=== PATIENT | male | born 1970 | race Caucasian/White ===

== ENCOUNTER 2017-06-21 13:11 | Emergency (ER) | payer SELFPAY ==
--- NOTE | 2017-06-21 13:47 | Emergency Department Record ---
History of Present Illness - General Chief Complaint: Slurred speech Stated Complaint: SLURRED SPEECH,HEADACHE, Time Seen by Provider: 06/21/17 13:31 Source: Patient Mode of Arrival: Ambulatory Limitations: No limitations - History of Present Illness Initial Comments: The patient is here due to wanting workup for his stroke he suffered on Apr 10 of this year. He has a very severe R sided CVA 2 months ago and was admitted to [facility] in [place]. After being there about 26 hours he left AMA. When he went into the hospital he could not move his R side and could not speak and had a severe R facial droop. Over the last 2 months he has slowly gotten mildly better but still has drooling out of the R side of his mouth and speech difficulties. He also is having trouble with his R side but it is a little better. Today the patient just got fed up with his condition and decided to come to the hospital for treatment. He has received no F/U and is on no medicines. Onset/Timin -: Month(s) Location: Right arm, Right leg, Speech History of same: Yes Place: Home Severity: Moderate Improves With: None Worsens With: None On Anticoagulants: No Associated Symptoms: Other Treatments Prior to Arrival: None - Ru Coma Scale Eye Response: (4) Open spontaneously Motor Response: (6) Obeys commands Verbal Response: (5) Oriented [place] Total: 15 - Related Data Home Medications: Home Medications Medication Instructions Recorded Confirmed Last Taken No Home Med [NO HOME MEDS] 06/21/17 06/21/17 Unknown Allergies/Adverse Reactions: Allergies Allergy/AdvReac Type Severity Reaction Status Date / Time No Known Drug Allergies Allergy Verified 06/21/17 13:17 Travel Screening - Travel/Exposure Within Last 30 Days Have you traveled within the last 30 days?: No - Travel/Exposure Within Last Year Have you traveled outside the [place] in the last year?: No - Additonal Travel Details Have you been exposed to anyone with a communicable illness?: No - Travel Symptoms Symptom Screening: None Review of Systems Constitutional: Denies: Chills, Fever Eyes: Denies: Eye discharge ENT: Denies: Congestion Respiratory: Denies: Cough, Dyspnea Past Medical History - SOCIAL HISTORY Smoking Status: Current every day smoker Alcohol Use: None Drug Use Detail:: Marijuana - RESPIRATORY Hx Respiratory Disorders: No - CARDIOVASCULAR Hx Cardio Disorders: No - NEURO Hx Neuro Disorders: Yes Hx CVA: Yes (April 10, 2017) - GI Hx GI Disorders: No - Hx Genitourinary Disorders: No - ENDOCRINE Hx Endocrine Disorders: No - MUSCULOSKELETAL Hx Musculoskeletal Disorders: No - PSYCH Hx Psych Problems: No - HEMATOLOGY/ONCOLOGY Hx Hematology/Oncology Disorders: No Family Medical History Any Significant Family History?: Yes Hx Alcohol Use: Father Hx Cancer: Mother Hx Liver Disease: Father Physical Exam - General General Appearance: Alert, Oriented x3, Cooperative, No acute distress - Head Head exam: Atraumatic, Normocephalic, Normal inspection - Eye Eye exam: Normal appearance, PERRL, EOMI - ENT ENT exam: negative: Normal exam (Mild R facial droop.) Throat exam: Normal inspection. negative: Tonsillar erythema, Tonsillar exudate - Neck Neck exam: Normal inspection, Full ROM. negative: Tenderness - Respiratory Respiratory exam: Normal lung sounds bilaterally. negative: Respiratory distress - Cardiovascular Cardiovascular Exam: Regular rate, Normal rhythm, Normal heart sounds - GI/Abdominal GI/Abdominal exam: Soft, Normal bowel sounds. negative: Tenderness - Extremities Extremities exam: Normal inspection, Full ROM, Normal capillary refill. negative: Tenderness - Neurological Neurological exam: Abnormal gait (mild ataxia), Alert (He does have a mild expressive aphasia.), Motor sensory deficit (There is very mild R arm weakness. There is a clearly abnormal R hand finger to nose exam.), Oriented X3, Reflexes normal. negative: Normal gait - Psychiatric Psychiatric exam: negative: Anxious Course Vital Signs 06/21/17 13:19 Temperature 98.4 F Pulse Rate 89 Respiratory 18 Rate Blood Pressure 134/83 Pulse Ox 98 - Reevaluation(s) Reevaluation #1: The patient is doing very well at this time. He is resting comfortably. I did discuss the need for admission with him and did recommend a larger hospital due to the need for an MRI and Neurology. The patent would like to go to [facility] so I did discuss the case with Dr. Ferro and she does accept the patient as a direct admission. 06/21/17 14:48 Reevaluation #2: The patient is doing very well at this time. I did recommend transfer by Ambulance but the patient and are refusing. They would like to go by car. They both understand the risks of transferring by car and accept the risks. 06/21/17 15:09 Medical Decision Making - Data Complexity MDM Data: Labs Ordered and/or Reviewed, X-Ray Ordered and/or Reviewed, EKG Ordered and/or Reviewed - Lab Data Result diagrams: 06/21/17 13:20 06/21/17 13:20 - EKG Data -: EKG Interpreted by Me EKG: No Acute Changes, Normal EKG (NSR with LAD, possible LAFB.) - Radiology Data Radiology results: Report reviewed (Head CT: Neg acute changes, old high L parietal lobe infarct.) Disposition Disposition: Transfer Disposition: Acute Care Hospital Transfer Transfer To: [facility] Reason For Transfer: Neurology Accepting Physician: Pillo Time Discussed w/Accepting Physician: 14:49 Condition: (2) Stable Forms: Patient Portal Access Time of Disposition: 14:49 Quality - Quality Measures Quality Measures: N/A - Blood Pressure Screening View Details: Yes Does Patient Have Any of the Following: No Blood Pressure Classification: Hypertensive Reading Systolic Measurement: 143 Diastolic Measurement: 90 Screening for High Blood Pressure: < Pre-Hypertensive BP, F/U Documented > [ G8950] Pre-Hypertensive Follow-up Interventions: Referral to alternative/primary care provider.
[2017-06-21 13:59] LABS: BASO % 0.5 % (0-6); EOS % 1.9 % (0-6); HEMATOCRIT 41.6 % (42.0-52.0); LYMPH % 21.4 % (16-45); MEAN CELL VOLUME 99.8 fl (81-97); MEAN CORPUSCULAR HGB CONC 33.7 g/dl (32-36); MEAN PLATELET VOLUME 9.4 fl (7.4-10.4); MONO % 10.2 % (0-9); PLATELET COUNT 296 K/uL (130-400); RED BLOOD COUNT 4.17 M/uL (4.40-5.70)
[2017-06-21 14:01] LABS: MEAN CORPUSCULAR HEMOGLOBIN 33.5 pg (27-33)
[2017-06-21 14:04] LABS: BLOOD UREA NITROGEN 9 mg/dL (6-20); CREATININE 0.6 mg/dL (0.7-1.2); EST GLOMERULAR FILTRATION RATE > 60 mL/min
[2017-06-21 14:05] LABS: TOTAL PROTEIN 7.4 g/dL (6.6-8.7)
[2017-06-21 14:07] LABS: GLUCOSE,RANDOM 138 mg/dL (74-109)
[2017-06-21 14:09] LABS: ALT/SGPT 27 U/L (<41)
[2017-06-21 14:10] LABS: ALB/GLOB RATIO 1.3 (1.1-1.8); ALBUMIN 4.2 g/dL (4.0-5.0); ALKALINE PHOSPHATASE 77 U/L (40-129); AST/SGOT 49 U/L (10.0-50.0)
[2017-06-21] MEDS: ASPIRIN 325 MG TABLET PO ONE (14:46)
--- NOTE | 2017-06-22 08:35 | CT SCAN REPORT ---
EXAM: EMERGENCY HEAD CT HISTORY: RIGHT SIDED WEAKNESS, POST CVA, SLURRED SPEECH. TECHNIQUE: Axial CT scan of the head was performed without IV contrast. Comparison: None. FINDINGS: No definite acute intracranial hemorrhage identified. No focal mass effect or midline shift apparent. No definite acute infarct or intracranial mass lesion is seen. There is a small area of low attenuation high in the left parietal lobe probably representing a small old area of infarction. Mild membrane thickening in the left maxillary sinus. IMPRESSION: 1. NO DEFINITE ACUTE INTRACRANIAL HEMORRHAGE OR FOCAL MASS EFFECT EVIDENT. 2. THERE IS PROBABLY A SMALL OLD AREA OF INFARCTION IN THE LEFT PARIETAL LOBE. 3. MILD MEMBRANE THICKENING LEFT MAXILLARY ANTRUM. 4. IF THE PATIENT'S NEUROLOGIC SYMPTOMS PERSIST, A FOLLOW-UP BRAIN MRI WOULD BE SUGGESTED FOR FURTHER EVALUATION IF NOT CONTRAINDICATED. JOB NUMBER: [id number] [facility]
--- NOTE | 2017-06-24 07:21 | Emergency Department Record ---
History of Present Illness - General Chief Complaint: Slurred speech Stated Complaint: SLURRED SPEECH,HEADACHE, Time Seen by Provider: 06/21/17 13:31 Source: Patient Mode of Arrival: Ambulatory Limitations: No limitations - History of Present Illness Onset/Timin -: Month(s) Location: Right arm, Right leg, Speech History of same: Yes Place: Home Severity: Moderate Improves With: None Worsens With: None On Anticoagulants: No Associated Symptoms: Other Treatments Prior to Arrival: None - Ru Coma Scale Eye Response: (4) Open spontaneously Motor Response: (6) Obeys commands Verbal Response: (5) Oriented [place] Total: 15 - Related Data Home Medications: Home Medications Medication Instructions Recorded Confirmed Last Taken No Home Med [NO HOME MEDS] 06/21/17 06/21/17 Unknown Allergies/Adverse Reactions: Allergies Allergy/AdvReac Type Severity Reaction Status Date / Time No Known Drug Allergies Allergy Verified 06/21/17 13:17 Travel Screening - Travel/Exposure Within Last 30 Days Have you traveled within the last 30 days?: No - Travel/Exposure Within Last Year Have you traveled outside the [place] in the last year?: No - Additonal Travel Details Have you been exposed to anyone with a communicable illness?: No - Travel Symptoms Symptom Screening: None Review of Systems Constitutional: Denies: Chills, Fever Eyes: Denies: Eye discharge ENT: Denies: Congestion Respiratory: Denies: Cough, Dyspnea Past Medical History - SOCIAL HISTORY Smoking Status: Current every day smoker Alcohol Use: None Drug Use Detail:: Marijuana - RESPIRATORY Hx Respiratory Disorders: No - CARDIOVASCULAR Hx Cardio Disorders: No - NEURO Hx Neuro Disorders: Yes Hx CVA: Yes (April 10, 2017) - GI Hx GI Disorders: No - Hx Genitourinary Disorders: No - ENDOCRINE Hx Endocrine Disorders: No - MUSCULOSKELETAL Hx Musculoskeletal Disorders: No - PSYCH Hx Psych Problems: No - HEMATOLOGY/ONCOLOGY Hx Hematology/Oncology Disorders: No Family Medical History Any Significant Family History?: Yes Hx Alcohol Use: Father Hx Cancer: Mother Hx Liver Disease: Father Physical Exam - General Limitations: No limitations Course Vital Signs 06/21/17 06/21/17 13:19 15:26 Temperature 98.4 F Pulse Rate 89 71 Respiratory 18 18 Rate Blood Pressure 134/83 143/90 Pulse Ox 98 98 Medical Decision Making - Lab Data Result diagrams: 06/21/17 13:20 06/21/17 13:20 Lab Results 06/21/17 06/21/17 Range/Units 13:20 13:20 WBC 8.0 (4.2-12.2) K/uL RBC 4.17 L (4.40-5.70) M/uL Hgb 14.0 (14.0-18.0) gm/dl Hct 41.6 L (42.0-52.0) % MCV 99.8 H (81-97) fl MCH 33.5 H (27-33) pg MCHC 33.7 (32-36) g/dl RDW 13.0 (11.5-14.5) % Plt Count 296 (130-400) K/uL MPV 9.4 (7.4-10.4) fl Gran % 66.0 (47-80) % Lymphocytes % 21.4 (16-45) % Monocytes % 10.2 H (0-9) % Eosinophils % 1.9 (0-6) % Basophils % 0.5 (0-6) % Sodium 142 (136-145) mmol/L Potassium 4.4 (3.4-4.5) mmol/L Chloride 101 (98-107) mmol/L Carbon Dioxide 28.0 (22-29) mmol/L Anion Gap 13.0 (7-16) BUN 9 (6-20) mg/dL Creatinine 0.6 L (0.7-1.2) mg/dL Estimated GFR > 60 mL/min Random Glucose 138 H (74-109) mg/dL Calcium 9.6 (8.6-10.0) mg/dL Total Bilirubin 0.60 (0.2-1.0) mg/dL AST 49 (10.0-50.0) U/L ALT 27 (<41) U/L Alkaline Phosphatase 77 (40-129) U/L Total Protein 7.4 (6.6-8.7) g/dL Albumin 4.2 (4.0-5.0) g/dL Globulin 3.2 (1.4-4.8) gm/dL Albumin/Globulin Ratio 1.3 (1.1-1.8) Disposition Disposition: Transfer Clinical Impression: Cerebral vascular disease Disposition: Acute Care Hospital Transfer Transfer To: [facility] [place] Reason For Transfer: CVA Accepting Physician: Buskolic Time Discussed w/Accepting Physician: 07:20 Condition: (2) Stable Forms: Patient Portal Access Time of Disposition: 07:20 Quality - Quality Measures Quality Measures: N/A - Blood Pressure Screening View Details: Yes Does Patient Have Any of the Following: No Blood Pressure Classification: Hypertensive Reading Systolic Measurement: 143 Diastolic Measurement: 90 Screening for High Blood Pressure: < Pre-Hypertensive BP, F/U Documented > [ G8950] Pre-Hypertensive Follow-up Interventions: Referral to alternative/primary care provider.
== END 2017-06-21 15:29 | disposition short-term general hospital (02) ==
LOC: ER 13:11
DX: I69.320 Aphasia following cerebral infarction (principal); I69.351 Hemiplegia and hemiparesis following cerebral infarction affecting right dominant side; R51 Headache; F17.210 Nicotine dependence, cigarettes, uncomplicated
CPT/HCPCS: 70450; 80053; 85025; 93005; 93010; 99285